=== PATIENT | male | born 2000 | race Caucasian/White ===

== ENCOUNTER 2020-12-19 22:08 | Emergency (ER) | payer OTHER ==
[~2020-12-19] VITALS: Ht 188 cm; Wt 83.9 kg
== END 2020-12-20 01:17 | disposition home or self-care (01) ==
LOC: ER 22:08
DX: K91.840 Postprocedural hemorrhage of a digestive system organ or structure following a digestive system procedure (principal)
CPT/HCPCS: 99283; A9270